=== PATIENT | female | born 1970 | race American Indian/Alaskan Native ===

== ENCOUNTER 2021-06-03 23:20 | Inpatient (IN) | payer MEDICAID ==
[2021-06-04 00:36] LABS: Basophils % (Auto) 0.2 % (0.0-1.8); Hemoglobin 12.3 gm/dl (10.1-14.3); Lymphocytes # (Auto) 0.6 K/mm3 (1.2-5.4); Lymphocytes % (Auto) 8.7 % (13.4-35.0); Mean Corpuscular HGB Conc 32 % (30-34); Mean Corpuscular Volume 78 fl (79-97); Monocytes # (Auto) 0.3 K/mm3 (0.0-0.8); Monocytes % (Auto) 4.3 % (0.0-7.3); Platelet Count 262 K/mm3 (140-440); Red Blood Count 4.85 M/mm3 (3.65-5.03); Red Cell Distribution Width 17.9 % (13.2-15.2)
[2021-06-04 00:53] LABS: Albumin 4.4 g/dL (3.9-5); Calcium 10.6 mg/dL (8.4-10.2)
[2021-06-04] MEDS ORDERED: SODIUM CHLORIDE 0.9% 1000 ML 1,000 ML IV ONE (01:21)
[2021-06-04] MEDS ORDERED: FAMOTIDINE 20 MG/2 ML INJ IV ONE (03:37)
[2021-06-04] MEDS ORDERED: ONDANSETRON 4 MG/2 ML INJ IV ONE ×3 (03:37→11:50)
[2021-06-04] MEDS ORDERED: MORPHINE 4 MG/1 ML INJ IV ONE ×2 (03:37→09:09)
[2021-06-04] MEDS ORDERED: SODIUM CHLORIDE 0.9% 1000 ML 1,000 ML ONE (04:36)
[2021-06-04 04:45] LABS: Bilirubin,Urine NEG (Negative); Blood,Urine LG (Negative); Color,Urine Red (Yellow); Mucus,Urine FEW /HPF; RBC,Urine > 182.0 /HPF (0.0-6.0); Urobilinogen,Urine < 2.0 mg/dL (<2.0)
--- NOTE | 2021-06-04 06:46 | Emergency Department Report ---
<ELZA GIBBONS - Last Filed: 06/04/21 07:19> ED Abdominal Pain HPI - General Chief Complaint: Abdominal Pain Stated Complaint: ABDOMINAL PAIN/CHEST PAIN Source: patient Mode of arrival: Ambulatory Limitations: No Limitations - History of Present Illness Initial Comments: Patient is a 50-year-old -[place]ian female with a history of morbid obesity and anxiety depression who presents to the ED with complaint of acute onset persistent nontraumatic diffuse abdominal pain that radiates to the right upper quadrant and right lower quadrant areas with nausea and vomiting for the last 3 days. Patient states that she has been taking orsb-yos-[id number] me dication for pain with no relief. Patient states that the pain occasionally radiates to the anterior chest wall and right flank. Patient denies chest pain, shortness of breath, dizziness, syncope, fever, chills, hematemesis, hematochezia, dysuria, urinary frequency and urgency and low back pain. MD Complaint: abdominal pain (Right upper quadrant abdominal pain that in the right lower quadrant radiates diffusely), other (Nausea and vomiting) -: Sudden, days(s) (3) Location: periumbilical, RUQ, RLQ Radiation: RUQ, RLQ Migration to: no migration Severity scale (0 -10): 10 Quality: cramping, aching, fullness Consistency: constant Improves With: nothing Worsens With: nothing Associated Symptoms: denies other symptoms, nausea, vomiting. denies: diarrhea, fever, chills, dysuria, hematemesis, hematochezia, melena, hematuria, anorexia, other - Related Data Home Medications Medication Instructions Recorded Confirmed Last Taken Benztropine [Cogentin] 2 mg PO BID 05/27/15 05/27/15 05/26/15 Haloperidol Lactate [Haldol] 5 mg IM 05/27/15 05/18/15 hydrOXYzine PAMOATE [Vistaril] 50 mg PO AMHY 05/27/15 05/27/15 05/27/15 hydrOXYzine PAMOATE [Vistaril] 100 mg PO PMHY 05/27/15 05/27/15 05/26/15 Previous Rx's Medication Instructions Recorded Last Taken Type Fluticasone [Flonase] 1 spray NS QDAY #1 bottle 05/27/15 Unknown Rx Ibuprofen [Motrin] 800 mg PO Q8HR PRN #15 tablet 05/27/15 Unknown Rx guaiFENesin/CODEINE [Robitussin AC] 10 ml PO QHS PRN #70 oral.liqd 05/27/15 Unknown Rx Allergies Allergy/AdvReac Type Severity Reaction Status Date / Time prednisone Allergy Unknown Verified 05/27/15 08:09 ED Review of Systems Constitutional: denies: chills, fever Eyes: denies: eye pain, eye discharge, vision change ENT: denies: ear pain, throat pain Respiratory: denies: cough, shortness of breath, wheezing Cardiovascular: denies: chest pain, palpitations Endocrine: no symptoms reported Gastrointestinal: abdominal pain (Abdominal pain in the right upper quadrant and right lower quadrant and diffusely), nausea, vomiting. denies: diarrhea Genitourinary: denies: urgency, dysuria, discharge Musculoskeletal: denies: back pain, joint swelling, arthralgia Skin: denies: rash, lesions Neurological: denies: headache, weakness, paresthesias Psychiatric: denies: anxiety, depression Hematological/Lymphatic: denies: easy bleeding, easy bruising ED Past Medical Hx - Past Medical History Previous Medical History?: No Hx Psychiatric Treatment: Yes (depression) - Surgical History Past Surgical History?: No - Social History Smoking Status: Current Every Day Smoker Substance Use Type: Alcohol, Prescribed - Medications Home Medications: Home Medications Medication Instructions Recorded Confirmed Last Taken Type Benztropine [Cogentin] 2 mg PO BID 05/27/15 05/27/15 05/26/15 History Fluticasone [Flonase] 1 spray NS QDAY #1 bottle 05/27/15 Unknown Rx Haloperidol Lactate [Haldol] 5 mg IM 05/27/15 05/18/15 History Ibuprofen [Motrin] 800 mg PO Q8HR PRN #15 tablet 05/27/15 Unknown Rx guaiFENesin/CODEINE [Robitussin AC] 10 ml PO QHS PRN #70 oral.liqd 05/27/15 Unknown Rx hydrOXYzine PAMOATE [Vistaril] 50 mg PO AMHY 05/27/15 05/27/15 05/27/15 History hydrOXYzine PAMOATE [Vistaril] 100 mg PO PMHY 05/27/15 05/27/15 05/26/15 History ED Physical Exam - General Limitations: No Limitations General appearance: alert, in no apparent distress - Head Head exam: Present: atraumatic, normocephalic, normal inspection - Eye Eye exam: Present: normal appearance, PERRL, EOMI Pupils: Present: normal accommodation - ENT ENT exam: Present: normal exam, normal orophraynx, mucous membranes moist, TM's normal bilaterally, normal external ear exam - Neck Neck exam: Present: normal inspection, full ROM. Absent: tenderness - Respiratory Respiratory exam: Present: normal lung sounds bilaterally. Absent: respiratory distress, wheezes, rales, stridor, chest wall tenderness, accessory muscle use, decreased breath sounds, prolonged expiratory - Cardiovascular Cardiovascular Exam: Present: normal rhythm, tachycardia, normal heart sounds. Absent: systolic murmur, diastolic murmur, rubs, gallop - GI/Abdominal GI/Abdominal exam: Present: soft, tenderness (Palpable right upper quadrant and right lower quadrant tenderness with guarding), guarding, normal bowel sounds. Absent: rebound, hyperactive bowel sounds, hypoactive bowel sounds, organomegaly, pulsatile mass - Extremities Exam Extremities exam: Present: normal inspection, full ROM, normal capillary refill. Absent: tenderness, pedal edema, joint swelling - Back Exam Back exam: Present: normal inspection, full ROM. Absent: tenderness, CVA tenderness (R), CVA tenderness (L), muscle spasm, paraspinal tenderness, vertebral tenderness - Neurological Exam Neurological exam: Present: alert, oriented X3, CN II-XII intact, normal gait, reflexes normal - Psychiatric Psychiatric exam: Present: normal affect, normal mood, anxious - Skin Skin exam: Present: warm, dry, intact, normal color. Absent: rash ED Medical Decision Making - Lab Data Result diagrams: 06/03/21 23:59 06/03/21 23:59 - Radiology Data Radiology results: report reviewed, image reviewed - Medical Decision Making This is a 50-year-old -[place] female with a history of morbid obesity and anxiety depression who presents to the ED with complaint of acute onset persistent nontraumatic diffuse abdominal pain that radiates to the right upper quadrant and right lower quadrant areas with nausea and vomiting for the last 3 days. Patient states that she has been taking zkcu-czb-wopcash medication for pain with no relief. Patient states that the pain occasionally radiates to the anterior chest wall and right flank. In the ED, patient is alert and oriented x3 and is not in any distress but appears to be in significant pain. Patient is moving around on the bed during the physical exam. Lab test results were reviewed and showed acute urinary tract infection in urinalysis. It also showed BUN of 1.4 It took longer for the patient get a peripheral IV line to do a CT of the abdomen pelvis with contrast. Patient care was transferred to Nato Rani MIKE at shift change and she shall review all imaging reports and disposition the patient accordingly. - Differential Diagnosis Cholecystitis; appendicitis; GERD; pancreatitis; kidney stone; UTI ED Disposition Clinical Impression: Diffuse abdominal pain, Nausea and vomiting in adult patient, Acute urinary tract infection, Cholecystitis with cholelithiasis Disposition: ADMITTED INPATIENT Is pt being admited?: No Does the pt Need Aspirin: No Condition: Stable Instructions: Nausea and Vomiting, Adult, [id number], Abdominal Pain, Adult, [id number]-Fwsn, Abdominal Pain (ED) Referrals: IGOR RAJAN MD [Primary Care Provider] - 3-5 Days <DOREEN CLEMONS - Last Filed: 06/04/21 11:51> ED Review of Systems ROS: Stated complaint: ABDOMINAL PAIN/CHEST PAIN Other details as noted in HPI ED Course Vital Signs 06/03/21 06/03/21 23:21 23:43 Temperature 98.7 F 98.5 F Pulse Rate 104 H 119 H Respiratory 18 18 Rate Blood Pressure 137/83 Blood Pressure 154/91 [Left] O2 Sat by Pulse 100 98 Oximetry - Reevaluation(s) Reevaluation #1: 06/04/21 11:51 Reevaluated patient she is having more pain in the right upper quadrant. Spoke to Dr. Cantrell's one of the hospitalist and he gave me a verbal order for Dilaudid 0.5 mg IV we will order Zofran to accompany him for nausea and vomiting. - Consultations Consultation #1: 06/04/21 0800: Spoke with Dr. Joseph utilization coordinator surgeon regarding patient's case. He recommends a CT abdomen for lower right quadrant. Recommends admission spoke to Dr. Islas states patient to be admitted. Patient was given another dose of morphine 4 mg with Zofran 4 mg for pain control. ED Medical Decision Making - Lab Data Result diagrams: 06/03/21 23:59 06/03/21 23:59 Critical care attestation.: If time is entered above; I have spent that time in minutes in the direct care of this critically ill patient, excluding procedure time. ED Disposition Is pt being admited?: Yes Does the pt Need Aspirin: No
--- NOTE | 2021-06-04 07:53 | Ultrasound Report ---
ULTRASOUND ABDOMEN, LIMITED (RIGHT UPPER QUADRANT) INDICATION: RUQ Pain. COMPARISON: None available. FINDINGS: Pancreas: Visualized portion shows no significant abnormality. Liver: Enlarged, measuring 17.3 cm. No focal lesions. Normal portal venous flow. Gallbladder: Contracted with multiple gallstones noted. No distinct pericholecystic fluid. Sonograph ic Kilpatrick's sign: Positive. Bile ducts: No significant abnormality. Common Bile Duct measures 4.8 mm. Free fluid: None. Additional Findings: There is moderate right renal parenchymal thinning. IMPRESSION: 1. Cholelithiasis within a contracted gallbladder with a positive sonographic Kilpatrick sign, concerning for acute cholecystitis. 2. Additional findings as above. Signer Name: Aniceto Perry MD Signed: 06/04/2021 7:48 AM Workstation Name: [id number]
--- NOTE | 2021-06-04 10:14 | Cat Scan Report ---
CT ABDOMEN AND PELVIS WITHOUT CONTRAST INDICATION / CLINICAL INFORMATION: RLQ abd pain. Right upper quadrant pain since Friday. Known gallst ones. TECHNIQUE: Axial CT images were obtained through the abdomen and pelvis without IV contrast. All CT scans at this location are performed using CT dose reduction for ALARA by means of automated exposure control. COMPARISON: None available. FINDINGS: LOWER CHEST: Bibasilar atelectasis, right greater than left. LIVER: No significant abnormality. GALLBLADDER: Multiple calcified gallstones within a contracted gallbladder. No inflammation. BILE DUCTS: No significant abnormality. PANCREAS: No significant abnormality. SPLEEN: No significant abnormality. ADRENALS: No significant abnormality. RIGHT KIDNEY / URETER: No significant abnormality. LEFT KIDNEY / URETER: No significant abnormality. STOMACH / SMALL BOWEL: No significant abnormality. COLON: No significant abnormality. APPENDIX: Dilated appendix with calcified appendicolith at the base of the appendix. Moderate periapp endiceal inflammation with several tiny periappendiceal gas bubbles. No soft tissue abscess. PERITONEUM: No free fluid. No free air. No fluid collection. LYMPH NODES: No significant adenopathy. AORTA / ARTERIES: No significant abnormality. IVC / VEINS: No significant abnormality. URINARY BLADDER: No significant abnormality. REPRODUCTIVE ORGANS: Uterus is enlarged containing multiple fibroids some of which are calcified. Kath dre measures 2.6 x 8.4 x 11.9 cm. No adnexal abnormality. ADDITIONAL FINDINGS: None. SKELETAL SYSTEM: No significant abnormality. IMPRESSION: 1. Acute appendicitis with appendicolith and possible localized perforation. No abscess or free air. 2. Cholelithiasis without definite CT evidence for acute cholecystitis. 3. Enlarged uterus containing multiple fibroids. Signer Name: Geno Curtis MD Signed: 06/04/2021 10:10 AM Workstation Name: [email or web address]
[2021-06-04] MEDS ORDERED: HYDROmorphone 1 MG/1 ML INJ IV ONE (11:50)
--- NOTE | 2021-06-04 12:52 | History and Physical Report ---
History of Present Illness Date of examination: 06/04/21 Date of admission: 06/04/2021 Chief complaint: Abdominal pain, nausea vomiting of 3 days History of present illness: 50-year-old female patient with significant past medical history of depression presented to the emergency room with acute and diffuse abdominal pain of 3 days duration worse since last night associated with intractable nausea vomiting. Patient has been trying rjoi-scw-nbsivhe medications for pain relief. Pain radiates to the right upper and lower quadrants sometimes radiating to anterior chest wall Patient denies any fever denies chest pain or shortness of breath denies hematemesis melena or rectal bleeding, no urinary symptoms Initial evaluation in the ED with CT abdomen and pelvis findings consistent with acute appendicitis with appendicolith and possible localized perforation no salma dence of abscess or free air incidental finding of cholelithiasis without cholecystitis Past History Past Medical History: other (Depression). denies: hypertension, hyperlipidemia Past Surgical History: No surgical history Social history: smoking. denies: alcohol abuse, prescription drug abuse Family history: no significant family history Medications and Allergies Allergies Allergy/AdvReac Type Severity Reaction Status Date / Time prednisone Allergy Unknown Verified 05/27/15 08:09 Home Medications Medication Instructions Recorded Confirmed Last Taken Type Benztropine [Cogentin] 2 mg PO BID 05/27/15 05/27/15 05/26/15 History Fluticasone [Flonase] 1 spray NS QDAY #1 bottle 05/27/15 Unknown Rx Haloperidol Lactate [Haldol] 5 mg IM 05/27/15 05/18/15 History Ibuprofen [Motrin] 800 mg PO Q8HR PRN #15 tablet 05/27/15 Unknown Rx guaiFENesin/CODEINE [Robitussin AC] 10 ml PO QHS PRN #70 oral.liqd 05/27/15 Unknown Rx hydrOXYzine PAMOATE [Vistaril] 50 mg PO AMHY 05/27/15 05/27/15 05/27/15 History hydrOXYzine PAMOATE [Vistaril] 100 mg PO PMHY 05/27/15 05/27/15 05/26/15 History Active Meds: Active Medications Acetaminophen (Acetaminophen 325 Mg Tab) 650 mg PO Q4H PRN PRN Reason: Pain MILD(1-3)/Fever >100.5/[facility]ERSON Benztropine Mesylate (Benztropine 2 Mg Tab) 2 mg PO BID [facility] Enoxaparin Sodium (Enoxaparin 40 Mg/0.4 Ml Inj) 40 mg SUB-Q QDAY [facility] Famotidine (Famotidine 20 Mg/2 Ml Inj) 20 mg IV BID [facility] Fluticasone Propionate (Fluticasone Propionate Nasal [place] 16 Gm) 50 mcg NS QDAY [facility] Hydromorphone HCl (Hydromorphone 1 Mg/1 Ml Inj) 0.5 mg IV Q3H PRN PRN Reason: Pain , Severe (7-10) Sodium Chloride (Nacl 0.9% 1000 Ml) 1,000 mls @ 100 mls/hr IV DIRECT [facility] Piperacillin Sod/Tazobactam Sod (Zosyn/Ns 3.375gm/50ml) 3.375 gm in 50 mls @ 10 0 mls/hr IV Q8H [facility]; Protocol Morphine Sulfate (Morphine 2 Mg/1 Ml Inj) 2 mg IV Q4H PRN PRN Reason: Pain, Moderate (4-6) Ondansetron HCl (Ondansetron 4 Mg/2 Ml Inj) 4 mg IV Q8H PRN PRN Reason: Nausea And Vomiting Sodium Chloride (Sodium Chloride 0.9% 10 Ml Flush Syringe) 10 ml IV BID [facility] Sodium Chloride (Sodium Chloride 0.9% 10 Ml Flush Syringe) 10 ml IV PRN PRN PRN Reason: LINE FLUSH Review of Systems Constitutional: weakness, no weight loss, no weight gain, no fever, no chills Ears, nose, mouth and throat: no nasal congestion, no nasal discharge Cardiovascular: no chest pain, no orthopnea, no palpitations Respiratory: no cough with sputum, no shortness of breath Gastrointestinal: abdominal pain, nausea, vomiting Genitourinary Female: flank pain, no pelvic pain, no dysuria Musculoskeletal: no myalgias, no arthritis Integumentary: no rash, no lesions Neurological: no weakness, no seizures, no syncope, no tremors Psychiatric: no anxiety, no depression Endocrine: no cold intolerance, no heat intolerance, no polydipsia, no polyuria Hematologic/Lymphatic: no easy bruising, no easy bleeding Allergic/Immunologic: no urticaria, no allergic rhinitis Exam - Constitutional Vitals: Temp Pulse Resp BP Pulse Ox 98.5 F 119 H 18 137/83 98 06/03/21 23:43 06/03/21 23:43 06/03/21 23:43 06/03/21 23:43 06/03/21 23:43 General appearance: Present: mild distress, well-nourished, obese - EENT Eyes: Present: PERRL, EOM intact - Neck Neck: Present: supple, normal ROM - Respiratory Respiratory effort: normal Respiratory: bilateral: diminished, negative: rales, rhonchi, wheezing - Cardiovascular Rhythm: regular Heart Sounds: Present: S1 & S2 - Extremities Extremities: no ischemia, No edema - Abdominal General gastrointestinal: Present: soft, tender, non-distended, hypoactive bowel sounds - Integumentary Integumentary: Present: clear, warm - Musculoskeletal Musculoskeletal: strength equal bilaterally, generalized weakness - Psychiatric Psychiatric: appropriate mood/affect, cooperative HEART Score - HEART Score Troponin: Troponin T < 0.010 ng/mL (0.00-0.029) 06/04/21 04:02 Results - Labs CBC & Chem 7: 06/03/21 23:59 06/03/21 23:59 Labs: Abnormal lab results 06/03/21 06/03/21 06/03/21 Range/Units 23:45 23:59 23:59 MCV 78 L (79-97) fl MCH 25 L (28-32) pg RDW 17.9 H (13.2-15.2) % Lymph % (Auto) 8.7 L (13.4-35.0) % Lymph # (Auto) 0.6 L (1.2-5.4) K/mm3 Seg Neutrophils % 86.8 H (40.0-70.0) % Sodium 136 L (137-145) mmol/L Potassium 3.4 L (3.6-5.0) mmol/L Chloride 95.9 L (98-107) mmol/L Carbon Dioxide 17 L (22-30) mmol/L Creatinine 1.4 H (0.6-1.2) mg/dL Glucose 134 H (65-100) mg/dL Calcium 10.6 H (8.4-10.2) mg/dL Urine WBC (Auto) 25.0 H (0.0-6.0) /HPF U Epithel Cells (Auto) 28.0 H (0-13.0) /HPF Assessment and Plan --Acute appendicitis; With appendicolith and possible localized perforation N.p.o. status IV fluids, IV pain medications, IV antibiotics Surgery consult[discussed with Dr. Joseph] Laparoscopic appendectomy/exploration --Cholelithiasis without evidence of cholecystitis; --Acute kidney injury; Vasomotor nephropathy, IV hydration Monitor renal function --Hypokalemia; Replenished with IV KCl --Morbid obesity; BMI 46.6 Patient needs dietary modification, exercise as tolerated and weight reduction When medically stable Patient may benefit from outpatient bariatric surgical evaluation For weight reduction program when she is medically stable --Ongoing tobacco use; Smoking cessation counseling Advised nicotine patch as needed --DVT prophylaxis; SCDs No pharmacologic anticoagulation in view of pending procedure We will closely monitor the patient and adjust management as needed Plan of care reviewed with the patient and the nurse I also discussed with surgeon Dr. Joseph
[2021-06-04] MEDS ORDERED: ACETAMINOPHEN 325 MG TAB PO PRN (13:00)
[2021-06-04] MEDS ORDERED: SODIUM CHLORIDE 0.9% 1000 ML 1,000 ML IV SCH (14:00)
[2021-06-04] MEDS ORDERED: ONDANSETRON 4 MG/2 ML INJ IV PRN (14:00)
[2021-06-04] MEDS ORDERED: MORPHINE 2 MG/1 ML INJ IV PRN (14:00)
--- NOTE | 2021-06-04 14:40 | Anesthesia Consultation ---
Anesthesia Consult and Med Hx Date of service: 06/04/21 - Airway Anesthetic Teeth Evaluation: Poor (multiple missing, broken teeth) Mallampati Class: Class III Intubation Access Assessment: Possibly Difficult - Pre-Operative Health Status ASA Pre-Surgery Classification: ASA3 Proposed Anesthetic Plan: General - Pulmonary Hx Smoking: Yes (current everyday smoker) Hx Sleep Apnea: Yes (high risk) - Central Nervous System Hx Psychiatric Problems: Yes (depression) - Other Systems Hx Obesity: Yes (BMI 46.6) - Additional Comments Anesthesia Medical History Comments: acute appendicitis with the signs of rupture
--- NOTE | 2021-06-04 14:40 | Anesthesia Day of Surgery ---
Anesthesia Day of Surgery - Day of Surgery Patient Examined: Yes Patient H&P Reviewed: Yes Patient is NPO: Yes
--- NOTE | 2021-06-04 14:44 | Consultation ---
History of Present Illness Consult date: 06/04/21 Reason for consult: abdominal pain - History of present illness History of present illness: Patient is a 50-year-old -[place] female with a history of morbid obesity and anxiety depression who presents to the ED with complaint of acute onset persistent nontraumatic diffuse abdominal pain that radiates to the right upper quadrant and right lower quadrant areas with nausea and vomiting for the last 3 days. Patient states that she has been taking [id number] medication for pain with no relief. Patient states that the pain occasionally radiates to the anterior chest wall and right flank. Patient denies chest pain, shortness of breath, dizziness, syncope, fever, chills, hematemesis, hematochezia, dysuria, urinary frequency and urgency and low back pain. Pt initially felt to have cholecystitis. US of the abdo positive for multiple gall stones. However because the pt had significant rlq pain a CTof the abdo was done. This shows acute appendicitis with early rupture and contaned free air. Pt states that pain started last Friday 4 days ago. She denies any prior simular episodes or any prior surgery. Past History Past Medical History: other (Depression). denies: hypertension, hyperlipidemia Past Surgical History: No surgical history Social history: smoking. denies: alcohol abuse, prescription drug abuse Family history: no significant family history Medications and Allergies Allergies Allergy/AdvReac Type Severity Reaction Status Date / Time prednisone Allergy Unknown Verified 05/27/15 08:09 Home Medications Medication Instructions Recorded Confirmed Last Taken Type Benztropine [Cogentin] 2 mg PO BID 05/27/15 05/27/15 05/26/15 History Fluticasone [Flonase] 1 spray NS QDAY #1 bottle 05/27/15 Unknown Rx Haloperidol Lactate [Haldol] 5 mg IM 05/27/15 05/18/15 History Ibuprofen [Motrin] 800 mg PO Q8HR PRN #15 tablet 05/27/15 Unknown Rx guaiFENesin/CODEINE [Robitussin AC] 10 ml PO QHS PRN #70 oral.liqd 05/27/15 Unknown Rx hydrOXYzine PAMOATE [Vistaril] 50 mg PO AMHY 05/27/15 05/27/15 05/27/15 History hydrOXYzine PAMOATE [Vistaril] 100 mg PO PMHY 05/27/15 05/27/15 05/26/15 History Active Meds: Active Medications Acetaminophen (Acetaminophen 325 Mg Tab) 650 mg PO Q4H PRN PRN Reason: Pain MILD(1-3)/Fever >100.5/[facility] Benztropine Mesylate (Benztropine 2 Mg Tab) 2 mg PO BID [facility] Enoxaparin Sodium (Enoxaparin 40 Mg/0.4 Ml Inj) 40 mg SUB-Q QDAY [facility] Famotidine (Famotidine 20 Mg/2 Ml Inj) 20 mg IV BID [facility] Fluticasone Propionate (Fluticasone Propionate Nasal [place] 16 Gm) 50 mcg NS QDAY [facility] Hydromorphone HCl (Hydromorphone 1 Mg/1 Ml Inj) 0.5 mg IV Q3H PRN PRN Reason: Pain , Severe (7-10) Sodium Chloride (Nacl 0.9% 1000 Ml) 1,000 mls @ 100 mls/hr IV DIRECT [facility] Piperacillin Sod/Tazobactam Sod (Zosyn/Ns 3.375gm/50ml) 3.375 gm in 50 mls @ 100 mls/hr IV Q8H [facility]; Protocol Potassium Chloride (Kcl 10meq/100ml) 10 meq in 100 mls @ 100 mls/hr IV Q1H [facility] Stop: 06/04/21 17:59 Morphine Sulfate (Morphine 2 Mg/1 Ml Inj) 2 mg IV Q4H PRN PRN Reason: Pain, Moderate (4-6) Ondansetron HCl (Ondansetron 4 Mg/2 Ml Inj) 4 mg IV Q8H PRN PRN Reason: Nausea And Vomiting Sodium Chloride (Sodium Chloride 0.9% 10 Ml Flush Syringe) 10 ml IV BID [facility] Sodium Chloride (Sodium Chloride 0.9% 10 Ml Flush Syringe) 10 ml IV PRN PRN PRN Reason: LINE FLUSH Exam Vital Signs Temp Pulse Resp BP Pulse Ox 98.7 F 104 H 18 154/91 100 06/03/21 23:21 06/03/21 23:21 06/03/21 23:21 06/03/21 23:21 06/03/21 23:21 - General physical appearance Positive: well developed, moderate distress - Eyes Positive: PERRL - Neck Positive: no masses, no bruits, trachea midline - Respiratory Positive: normal expansion - Cardiovascular Rhythm: regular - Extremities Extremities: no ischemia, No edema - Abdomen Abdomen: Present: tender, bowel sounds hypoactive, distended, rebound, guarding. Absent: masses Hernia: none - Integumentary no rash - Neurologic Neurologic: alert and oriented to time, place and person, motor strength and sensation are grossly intact, CN II-XII intact Results - Labs 06/03/21 23:59 06/03/21 23:59 Abnormal lab results 06/03/21 06/03/21 06/03/21 Range/Units 23:45 23:59 23:59 MCV 78 L (79-97) fl MCH 25 L (28-32) pg RDW 17.9 H (13.2-15.2) % Lymph % (Auto) 8.7 L (13.4-35.0) % Lymph # (Auto) 0.6 L (1.2-5.4) K/mm3 Seg Neutrophils % 86.8 H (40.0-70.0) % Sodium 136 L (137-145) mmol/L Potassium 3.4 L (3.6-5.0) mmol/L Chloride 95.9 L (98-107) mmol/L Carbon Dioxide 17 L (22-30) mmol/L Creatinine 1.4 H (0.6-1.2) mg/dL Glucose 134 H (65-100) mg/dL Calcium 10.6 H (8.4-10.2) mg/dL Urine WBC (Auto) 25.0 H (0.0-6.0) /HPF U Epithel Cells (Auto) 28.0 H (0-13.0) /HPF Diabetes panel 06/03/21 Range/Units 23:59 Sodium 136 L (137-145) mmol/L Potassium 3.4 L (3.6-5.0) mmol/L Chloride 95.9 L (98-107) mmol/L Carbon Dioxide 17 L (22-30) mmol/L BUN 13 (7-17) mg/dL Creatinine 1.4 H (0.6-1.2) mg/dL Glucose 134 H (65-100) mg/dL Calcium 10.6 H (8.4-10.2) mg/dL AST 14 (5-40) units/L ALT 9 (7-56) units/L Alkaline Phosphatase 94 (35-129) units/L Total Protein 7.8 (6.3-8.2) g/dL Albumin 4.4 (3.9-5) g/dL Calcium panel 06/03/21 Range/Units 23:59 Calcium 10.6 H (8.4-10.2) mg/dL Albumin 4.4 (3.9-5) g/dL Pituitary panel 06/03/21 Range/Units 23:59 Sodium 136 L (137-145) mmol/L Potassium 3.4 L (3.6-5.0) mmol/L Chloride 95.9 L (98-107) mmol/L Carbon Dioxide 17 L (22-30) mmol/L BUN 13 (7-17) mg/dL Creatinine 1.4 H (0.6-1.2) mg/dL Glucose 134 H (65-100) mg/dL Calcium 10.6 H (8.4-10.2) mg/dL Adrenal panel 06/03/21 Range/Units 23:59 Sodium 136 L (137-145) mmol/L Potassium 3.4 L (3.6-5.0) mmol/L Chloride 95.9 L (98-107) mmol/L Carbon Dioxide 17 L (22-30) mmol/L BUN 13 (7-17) mg/dL Creatinine 1.4 H (0.6-1.2) mg/dL Glucose 134 H (65-100) mg/dL Calcium 10.6 H (8.4-10.2) mg/dL Total Bilirubin 0.80 (0.1-1.2) mg/dL AST 14 (5-40) units/L ALT 9 (7-56) units/L Alkaline Phosphatase 94 (35-129) units/L Total Protein 7.8 (6.3-8.2) g/dL Albumin 4.4 (3.9-5) g/dL Assessment and Plan 49-year-old -[place] lady with lower abdominal pain secondary to acute appendicitis with early rupture and contained free air. Patient to go to the OR today for laparoscopic exploration and appendectomy.
[2021-06-04] MEDS ORDERED: LIDOCAINE (1%) 10 MG/1 ML VIAL 20 ML MDV ONE (14:49)
[2021-06-04] MEDS ORDERED: BUPIVACAINE/PF (0.5%) 5 MG/1 ML 30 ML VIAL INFILTRATI ONE ×2 (14:49→16:01)
[2021-06-04] MEDS ORDERED: ROCURONIUM 50 MG/5 ML INJ IV ONE (15:01)
[2021-06-04] MEDS ORDERED: propofoL 200 MG/20 ML VIAL IV ONE (15:01)
[2021-06-04] MEDS ORDERED: fentaNYL 100 MCG/2 ML INJ ONE (15:01)
[2021-06-04] MEDS ORDERED: LIDOCAINE MPF (2%) 20 MG/1 ML VIAL 5 ML ONE (15:01)
[2021-06-04] MEDS ORDERED: HYDROmorphone 1 MG/1 ML INJ IV PRN (15:04)
[2021-06-04] MEDS ORDERED: WATER FOR IRRIG STERILE 1,500 ML BOTTLE IR ONE (16:01)
[2021-06-04] MEDS ORDERED: LIDOCAINE (1%) 10 MG/1 ML VIAL 20 ML MDV INFILTRATI ONE (16:01)
[2021-06-04] MEDS ORDERED: SODIUM CHLORIDE 0.9% IRR 1,500 ML BOTTLE IR ONE (16:01)
[2021-06-04] MEDS ORDERED: dexAMETHasone 20 MG/5 ML VIAL ONE (16:24)
[2021-06-04] MEDS ORDERED: ONDANSETRON 4 MG/2 ML INJ ONE (16:24)
[2021-06-04] MEDS ORDERED: PHENYLEPHRINE/NS 1,000 MCG/10 ML SYRINGE (OR USE) IV ONE (16:24)
[2021-06-04] MEDS ORDERED: KETOROLAC 30 MG/1 ML INJ ONE (16:24)
[2021-06-04] MEDS ORDERED: SODIUM CHLORIDE 0.9% IRRIG SOLN 2000 ML IR ONE (16:25)
[2021-06-04] MEDS ORDERED: SUGAMMADEX SODIUM 200 MG/2 ML VIAL IV ONE (16:55)
--- NOTE | 2021-06-04 17:28 | Operative Report ---
Operative Report Operative Report: Procedure date: 06/04/2021 Preop diagnosis: Acute appendicitis with perforation Postop diagnosis: Same Procedure: Laparoscopic appendectomy Surgeon: Dr. Joseph [employer] Equipment Operator: Dr. Veloz Anesthesia: General endotracheal Estimated blood loss: 50 cc Specimen: Appendix, culture and sensitivity of peritoneal fluid Findings: This patient presents with a acute appendicitis diagnosed on CAT scan. She is taken to the OR and under general endotracheal anesthesia timeouts and consents are obtained. An Veloz catheter is placed. Abdomen is prepped with ChloraPrep and 3 minutes later draped in a sterile fashion. A 2 mm incision is made in the left upper quadrant and Veress needle was used to gain access peritoneal cavity. Abdomen is insufflated with CO2. 5 Webster port is placed in the right upper quadrant and in the low midline. A 10 mm port is placed supraumbilically. An additional 5 Webster port was placed for exposure in the left hypogastric area. The appendix is identified in the right lower quadrant and grasped with graspers. The endoscopic ADE stapler is used to separate the appendix from the base of the cecum. Harmonic scalpel was used to divide the mesoappendix. Specimen is then placed in a specimen bag and extracted through the 10 mm port. The fascial defect is then closed with a [place] system and a 2-0 Vicryl stitch. Skin is then closed with ritesh.
[2021-06-04 20:27] LABS: Hemoglobin 11.3 gm/dl (10.1-14.3); Mean Corpuscular HGB Conc 33 % (30-34); Mean Corpuscular Volume 79 fl (79-97); Platelet Count 201 K/mm3 (140-440); Red Blood Count 4.32 M/mm3 (3.65-5.03); Red Cell Distribution Width 17.9 % (13.2-15.2)
[2021-06-04] MEDS: POTASSIUM CHLORIDE 10 MEQ 10 MEQ/100 ML BAG IV SCH (21:12)
[2021-06-04] MEDS: FAMOTIDINE 20 MG/2 ML INJ IV SCH (21:16)
[2021-06-04] MEDS: BENZTROPINE 2 MG TAB PO SCH (21:23)
[2021-06-05] MEDS: PIPERACILLIN/TAZOBACTAM 3.375 3.375 GM/50 ML BAG IV SCH ×4 (00:54→06:56)
[2021-06-05] MEDS: POTASSIUM CHLORIDE 10 MEQ 10 MEQ/100 ML BAG IV SCH ×2 (00:55→03:16)
[2021-06-05] MEDS: HYDROmorphone 1 MG/1 ML INJ IV PRN ×5 (03:09→20:24)
[2021-06-05 06:35] LABS: Hematocrit 32.3 % (30.3-42.9); Hemoglobin 10.4 gm/dl (10.1-14.3); Mean Corpuscular HGB Conc 32 % (30-34); Mean Corpuscular Volume 78 fl (79-97); Platelet Count 195 K/mm3 (140-440); Red Blood Count 4.14 M/mm3 (3.65-5.03); Red Cell Distribution Width 18.1 % (13.2-15.2)
[2021-06-05 07:01] LABS: Calcium 9.3 mg/dL (8.4-10.2)
--- NOTE | 2021-06-05 08:06 | Progress Note ---
Assessment and Plan 49-year-old -[place] lady with lower abdominal pain secondary to acute appendicitis with early rupture and contained free air. Patient postop day #1 status post laparoscopic appendectomy advance diet as tolerated continue to monitor CBC. Subjective Date of service: 06/05/21 Patient Reports: Positive: feels better Narrative: 50-year-old -[place] lady status post laparoscopic appendectomy for a advanced and perforated appendix. Objective Vital Signs - 12hr 06/04/21 06/04/21 06/05/21 20:38 21:20 04:51 Temperature 98.2 F 98.3 F Pulse Rate 89 85 Respiratory 20 20 Rate Blood Pressure 135/79 120/69 O2 Sat by Pulse 96 94 92 Oximetry - Labs 06/05/21 05:32 06/05/21 05:32 Diabetes panel 06/05/21 Range/Units 05:32 Sodium 142 (137-145) mmol/L Potassium 3.9 (3.6-5.0) mmol/L Chloride 106.6 (98-107) mmol/L Carbon Dioxide 21 L (22-30) mmol/L BUN 17 (7-17) mg/dL Creatinine 1.2 (0.6-1.2) mg/dL Glucose 112 H (65-100) mg/dL Calcium 9.3 (8.4-10.2) mg/dL Calcium panel 06/05/21 Range/Units 05:32 Calcium 9.3 (8.4-10.2) mg/dL Pituitary panel 06/05/21 Range/Units 05:32 Sodium 142 (137-145) mmol/L Potassium 3.9 (3.6-5.0) mmol/L Chloride 106.6 (98-107) mmol/L Carbon Dioxide 21 L (22-30) mmol/L BUN 17 (7-17) mg/dL Creatinine 1.2 (0.6-1.2) mg/dL Glucose 112 H (65-100) mg/dL Calcium 9.3 (8.4-10.2) mg/dL Adrenal panel 06/05/21 Range/Units 05:32 Sodium 142 (137-145) mmol/L Potassium 3.9 (3.6-5.0) mmol/L Chloride 106.6 (98-107) mmol/L Carbon Dioxide 21 L (22-30) mmol/L BUN 17 (7-17) mg/dL Creatinine 1.2 (0.6-1.2) mg/dL Glucose 112 H (65-100) mg/dL Calcium 9.3 (8.4-10.2) mg/dL
[2021-06-05 08:47] LABS: Basophils % (Manual) 0 % (0.0-1.8); Eosinophils % (Manual) 0 % (0.0-4.3); Hypochromasia 1+; Platelet Estimate Consistent w Auto; Total Cells Counted 100
[2021-06-05] MEDS: ENOXAPARIN 40 MG/0.4 ML INJ SUB-Q SCH (09:46)
[2021-06-05] MEDS: FLUTICASONE PROPIONATE NASAL SPRAY 16 GM NS SCH (09:47)
[2021-06-05] MEDS: FAMOTIDINE 20 MG/2 ML INJ IV SCH (09:47)
[2021-06-05] MEDS ORDERED: MAGNESIUM SULFATE 2 GM/50 ML BAG IV ONE (10:00)
--- NOTE | 2021-06-05 10:01 | Electrocardiograph Report ---
[facility] Test Date: 2021-06-03 Test Time: 23:25:49 Pat Name: GONZALO OWENS Department: Room: A383 Gender: F Social Media Director: NURSE : 1970 Requested By: CHELSIE ROJAS Order Number: [id number] Reading MD: Sunil Martinez Measurements Intervals [place] Rate: 112 P: 43 NV: 126 QRS: -7 QRSD: 81 T: 177 QT: QTc: 0 Interpretive Statements Sinus tachycardia Nonspecific T abnormalities, diffuse leads No previous ECG available for comparison Electronically Signed On 06-05-2021 10:00:55 EDT by Sunil Martinez
[2021-06-05] MEDS: BENZTROPINE 2 MG TAB PO SCH ×2 (12:41→22:33)
[2021-06-05] MEDS: PIPERACIL/TAZOBACTA 4.5/NS 100 4.5 GM/100 ML VIAL IV SCH ×2 (14:04→22:34)
--- NOTE | 2021-06-05 14:23 | Post Anesthesia Evaluation ---
- Post Anesthesia Evaluation Patient Participated: Yes Airway Patent: Yes Stable Respiratory Function: Yes Nausea/Vomiting: No Temp > 96.8F: Yes Pain Manageable: Yes Adequeate Hydration: Yes Anesthesia Complications: No Block Receding Appropriately: Not Applicable Patient on Ventilator: No Other Comments: patient ambulated, pain is mostly manageble
--- NOTE | 2021-06-05 15:30 | Progress Note ---
Assessment and Plan --Acute appendicitis; With appendicolith and possible localized perforation N.p.o. status IV fluids, IV pain medications, IV antibiotics Surgery consult[discussed with Dr. Joseph] Laparoscopic appendectomy/exploration --Cholelithiasis without evidence of cholecystitis; --Acute kidney injury; Vasomotor nephropathy, IV hydration Monitor renal function --Hypokalemia; Replenished with IV KCl --Morbid obesity; BMI 46.6 Patient needs dietary modification, exercise as tolerated and weight reduction When medically stable Patient may benefit from outpatient bariatric surgical evaluation For weight reduction program when she is medically stable --Ongoing tobacco use; Smoking cessation counseling Advised nicotine patch as needed --DVT prophylaxis; SCDs No pharmacologic anticoagulation in view of pending procedure s/p appendectomy, continue to monitor CBC, replete magnesium. Advance diet. If clinically stable with a normal white count possible discharge tomorrow morning. Subjective Date of service: 06/05/21 Objective - Constitutional Vitals: Vital Signs - 12hr 06/05/21 04:51 Temperature 98.3 F Pulse Rate 85 Respiratory 20 Rate Blood Pressure 120/69 O2 Sat by Pulse 92 Oximetry - Labs CBC & Chem 7: 06/05/21 05:32 06/06/21 05:19 Labs: Abnormal lab results 06/04/21 06/05/21 06/05/21 Range/Units 19:12 05:32 05:32 MCV 78 L (79-97) fl MCH 26 L 25 L (28-32) pg RDW 17.9 H 18.1 H (13.2-15.2) % Seg Neuts % (Manual) 95.0 H (40.0-70.0) % Lymphocytes % (Manual) 2.0 L (13.4-35.0) % Seg Neutrophils # Man 9.6 H (1.8-7.7) K/mm3 Lymphocytes # (Manual) 0.2 L (1.2-5.4) K/mm3 Carbon Dioxide 21 L (22-30) mmol/L Glucose 112 H (65-100) mg/dL Magnesium 1.60 L (1.7-2.3) mg/dL HEART Score - HEART Score Troponin: Troponin T < 0.010 ng/mL (0.00-0.029) 06/04/21 04:02
[2021-06-05] MEDS: FAMOTIDINE 20 MG TAB PO SCH (22:33)
[2021-06-06] MEDS: HYDROmorphone 1 MG/1 ML INJ IV PRN (02:51)
[2021-06-06] MEDS: PIPERACIL/TAZOBACTA 4.5/NS 100 4.5 GM/100 ML VIAL IV SCH (05:35)
[2021-06-06 06:09] LABS: BUN/Creatinine Ratio 17; Blood Urea Nitrogen 17 mg/dL (7-17); Calcium 8.3 mg/dL (8.4-10.2); Hemolysis Index 0
[2021-06-06] MEDS: FAMOTIDINE 20 MG TAB PO SCH (10:57)
[2021-06-06] MEDS: BENZTROPINE 2 MG TAB PO SCH (10:57)
[2021-06-06] MEDS: ENOXAPARIN 40 MG/0.4 ML INJ SUB-Q SCH (10:58)
[2021-06-06] MEDS: FLUTICASONE PROPIONATE NASAL SPRAY 16 GM NS SCH (10:59)
--- NOTE | 2021-06-06 13:23 | Discharge Summary ---
Providers - Providers Date of Admission: 06/04/21 12:42 Date of discharge: 06/06/21 Attending physician: NIKKI PRAKASH 06/04/21 12:42 Consult to Physician [CONS] Routine Comment: Consulting Provider: MARI SETHI Physician Instructions: Reason For Exam: Acute appendicitis Primary care physician: IGOR RAJAN Hospitalization Condition: Stable Hospital course: --Acute appendicitis; With appendicolith and possible localized perforation s/p IV fluids, IV pain medications, IV antibiotics Surgery consulted and s/p Laparoscopic appendectomy/exploration --Cholelithiasis without evidence of cholecystitis; --Acute kidney injury; Vasomotor nephropathy, IV hydration Monitor renal function --Hypokalemia; Hypomagnesemia Replenished with IV KCl --Morbid obesity; BMI 46.6 Patient needs dietary modification, exercise as tolerated and weight reduction When medically stable Patient may benefit from outpatient bariatric surgical evaluation For weight reduction program when she is medically stable --Ongoing tobacco use; Smoking cessation counseling Advised nicotine patch as needed --DVT prophylaxis; SCDs No pharmacologic anticoagulation in view of pending procedure -- s/p appendectomy, continue to monitor CBC, replete magnesium. Advance diet. If clinically stable with a normal white count possible discharge tomorrow morning. Disposition: 01 HOME / SELF CARE / HOMELESS Final Discharge Diagnosis (Prints w/discharge instructions): Acute appendicitis. Cholelithiasis. Acute kidney injury due to vasomotor nephropathy. Hypokalemia. Hypomagnesemia. Morbid obesity with BMI 46.6 Time spent for discharge: 34 minutes Exam - Constitutional Vitals: Temp Pulse Resp BP Pulse Ox 98.3 F 85 18 137/84 92 06/06/21 10:18 06/06/21 10:18 06/06/21 10:18 06/06/21 10:18 06/06/21 10:18 Plan Activity: advance as tolerated Weight Bearing Status: Non-Weight Bearing Diet: low fat, low salt Follow up with: IGOR RAJAN MD [Primary Care Provider] - 3-5 Days Prescriptions: Amoxicillin/Potassium Clav [Augmentin 875-125 Tablet] 1 each PO BID #6 Ibuprofen [Motrin 800 MG tab] 800 mg PO Q8HR PRN #15 tablet PRN Reason: Sore Throat
[2021-06-06 13:47] LABS: Basophils % (Auto) 0.5 % (0.0-1.8); Eosinophils % (Auto) 0.3 % (0.0-4.3); Hematocrit 34.1 % (30.3-42.9); Lymphocytes # (Auto) 0.8 K/mm3 (1.2-5.4); Lymphocytes % (Auto) 9.1 % (13.4-35.0); Mean Corpuscular HGB Conc 32 % (30-34); Mean Corpuscular Volume 79 fl (79-97); Monocytes # (Auto) 0.4 K/mm3 (0.0-0.8); Monocytes % (Auto) 4.6 % (0.0-7.3); Platelet Count 237 K/mm3 (140-440); Red Blood Count 4.32 M/mm3 (3.65-5.03); Red Cell Distribution Width 18.4 % (13.2-15.2)
--- NOTE | 2021-06-06 16:00 | Progress Note ---
Assessment and Plan 49-year-old -[place] lady with lower abdominal pain secondary to acute appendicitis with early rupture and contained free air. Patient postop day #2 status post laparoscopic appendectomy advance diet as tolerated continue to monitor CBC. Ok to dc today fu josesitoht in one week. Subjective Date of service: 06/06/21 Patient Reports: Positive: no new complaints, feels better Narrative: Pt tolerating diet. CINTIA drain has fallen out. No fever or chills. Objective Vital Signs - 12hr 06/06/21 06/06/21 06/06/21 04:32 10:00 10:18 Temperature 98.9 F 98.3 F Pulse Rate 85 85 Respiratory 18 18 Rate Blood Pressure 137/72 137/84 O2 Sat by Pulse 92 96 92 Oximetry - Labs 06/06/21 12:53 06/06/21 05:19 Diabetes panel 06/06/21 Range/Units 05:19 Sodium 140 (137-145) mmol/L Potassium 3.7 (3.6-5.0) mmol/L Chloride 104.9 (98-107) mmol/L Carbon Dioxide 23 (22-30) mmol/L BUN 17 (7-17) mg/dL Creatinine 1.0 (0.6-1.2) mg/dL Glucose 98 (65-100) mg/dL Calcium 8.3 L (8.4-10.2) mg/dL Calcium panel 06/06/21 Range/Units 05:19 Calcium 8.3 L (8.4-10.2) mg/dL Pituitary panel 06/06/21 Range/Units 05:19 Sodium 140 (137-145) mmol/L Potassium 3.7 (3.6-5.0) mmol/L Chloride 104.9 (98-107) mmol/L Carbon Dioxide 23 (22-30) mmol/L BUN 17 (7-17) mg/dL Creatinine 1.0 (0.6-1.2) mg/dL Glucose 98 (65-100) mg/dL Calcium 8.3 L (8.4-10.2) mg/dL Adrenal panel 06/06/21 Range/Units 05:19 Sodium 140 (137-145) mmol/L Potassium 3.7 (3.6-5.0) mmol/L Chloride 104.9 (98-107) mmol/L Carbon Dioxide 23 (22-30) mmol/L BUN 17 (7-17) mg/dL Creatinine 1.0 (0.6-1.2) mg/dL Glucose 98 (65-100) mg/dL Calcium 8.3 L (8.4-10.2) mg/dL
[2021-06-06 17:07] VITALS: BP 155/68
== END 2021-06-06 17:23 | disposition home or self-care (01) | DRG 338 ==
LOC: ED 23:20 → 3A 06-04 12:42
PROVIDERS: ADMIT Internal Medicine; ATTEND Internal Medicine
PROC: 0DTJ4ZZ Resection of Appendix, Percutaneous Endoscopic Approach (ICD-10-PCS; principal; 2021-06-04)
DX: K35.32 Acute appendicitis with perforation, localized peritonitis, and gangrene, without abscess (principal); N17.0 Acute kidney failure with tubular necrosis; K80.20 Calculus of gallbladder without cholecystitis without obstruction; E66.01 Morbid (severe) obesity due to excess calories; F41.9 Anxiety disorder, unspecified; F32.9 Major depressive disorder, single episode, unspecified; F17.200 Nicotine dependence, unspecified, uncomplicated; E78.5 Hyperlipidemia, unspecified; E87.6 Hypokalemia; Z68.42 Body mass index [BMI] 45.0-49.9, adult; E83.42 Hypomagnesemia
CPT/HCPCS: 36415; 74176; 76705; 80048; 80053; 81001; 83690; 83735; 84484; 85007; 85025; 85027; 87075; 87076; 87086; 87116; 87186; 88304; 93005; 94760; G0378; J3490; J1100; J1170; J1650; J1885; J2270; J2370; J2405; J2543; J2704; J3010; J3475; J3480; J7030